=== PATIENT | female | born 1985 | race Caucasian/White ===

== ENCOUNTER 2022-06-08 12:52 | Outpatient (CLI) | payer SELFPAY ==
--- NOTE | ~2022-06-08 | US_ITS ---
EXAMINATION: US venous doppler LE RT DATE: 06/08/2022 13:57 INDICATION: Right lower limb pain. Varicose veins. TECHNIQUE: Grayscale ultrasound images without and with compression and Doppler ultrasound images of the right lower extremity veins were obtained. COMPARISON: None. FINDINGS: The visualized portions of right common femoral vein, profunda (deep) femoral vein, femoral vein, pop liteal vein, peroneal trunk, posterior tibial veins, peroneal veins, gastrocnemius vein and greater s aphenous vein outflow are patent. IMPRESSION: 1. No deep venous thrombosis in the right lower limb. Reviewed, dictated and finalized at location A.
== END 2022-06-08 12:53 | disposition home or self-care (01) ==
PROVIDERS: PCP Family Medicine; Visit Provider Family Medicine
DX: I83.811 Varicose veins of right lower extremity with pain (principal)
CPT/HCPCS: 93971

== ENCOUNTER 2022-06-16 09:28 | Emergency (ER) | payer SELFPAY ==
--- NOTE | ~2022-06-16 | XR_ITS ---
EXAMINATION: XR ankle LT min 3V DATE: 06/16/2022 10:48 INDICATION: Left ankle pain TECHNIQUE: Anteroposterior, lateral, mortise, and additional oblique view of the ankle were obtained. COMPARISON: None. FINDINGS: Bone alignment is normal. There is subtle heterotopic ossification projecting distal to the lateral malleolus. There is mild lateral soft tissue swelling near the lateral malleolus. An old hea led fracture of the distal fibula is noted. There is a plantar calcaneal enthesophyte. IMPRESSION: 1. Possible small avulsion injury of the lateral malleolus. Reviewed, dictated and finalized at location B.
[2022-06-16 09:31] VITALS: BP 113/71; PULSE 51; RESP 15; O2SAT 96
--- NOTE | 2022-06-16 09:58 | ECG_ITS ---
Measurements Intervals [place] Rate: 48 P: 66 UT: 186 QRS: 81 QRSD: 87 T: -8 QT: 499 QTc: 446 Interpretive Statements SINUS BRADYCARDIA INCOMPLETE RIGHT BUNDLE BRANCH BLOCK T WAVE ABNORMALITY IN ANTERIOR LEADS- CONSIDER ISCHEMIA ABNORMAL ECG NO PREVIOUS ECG AVAILABLE FOR COMPARISON Electronically Signed On 06-16-2022 11:18:29 CDT by Duy Villa D.O.
[2022-06-16] MEDS: SODIUM CHLORIDE 0.9% IV 1,000 ML 999 ML IV CONT (10:51)
[2022-06-16 10:54] LABS: Basophils Percent Auto 0.3 % (0.2-1.2); Eosinophils Percent Auto 0.4 % (0-4.4); Hematocrit 33.3 % (37.0-47.0); Hemoglobin 11.2 g/dL (12.0-15.0); Immature Granulocyte Absolute 0.04 K/mm3 (0.00-0.031); Immature Granulocyte Percent A 0.5 % (0-0.5); Lymphocytes Absolute Auto 0.72 K/mm3 (0.9-3.2); Lymphocytes Percent Auto 9.4 % (18.3-44.2); Mean Corpuscular HGB Conc 33.6 g/dl (32-36); Mean Corpuscular Hemoglobin 33.3 pg (26-34); Mean Corpuscular Volume 99.1 fl (80-100); Mean Platelet Volume 10.8 fl (7.4-10.4); Monocytes Absolute Auto 0.3 K/mm3 (0.1-0.6); Monocytes Percent Auto 4.3 % (2.6-8.5); Neutrophils Absolute Auto 6.5 K/mm3 (1.3-6.7); Neutrophils Percent Auto 85.1 % (45.5-73.1); Platelet Count Result 128 k/mm3 (150-375); Red Blood Count 3.36 M/mm3 (4.2-5.4); Red Cell Distribution Width 13.1 % (11.5-14.5); White Blood Count 7.7 K/mm3 (4.5-10.0)
--- NOTE | 2022-06-16 11:06 | ED.SYNCOPE ---
HPI - Syncope General Chief Complaint: Syncope Stated Complaint: ankle injury, syncope, 20wks Time Seen by Provider: 06/16/22 10:27 Source: patient, EMS and RN notes reviewed Mode of arrival: EMS Limitations: no limitations History of Present Illness HPI narrative: This is a 37 year old female [place] 20 weeks who presents for evaluation of syncopal episode. Patient states she has history of syncope with pain . She reports having at 8 episodes of vasovagal episodes in the past. She states today she was preparing for soccer practice when she twisted her left ankle. She reports pain and lateral swelling. She bent over to assess her ankle and she felt lightheaded. Her mother was present and able to lay patient down. They reports patient had brief episode of seizure like activity. She was unresponsive for less than 1 minute. She reports multiple similar episodes. She denies chest pain, sob, palpitations, abdominal pain or vaginal bleedig. She denies dizziness currently. She has had multiple evaluations for syncope. She reports her heart rate is always in 50s. Related Data Allergies Allergy/AdvReac Type Severity Reaction Status Date / Time No Known Allergies Allergy Verified 06/16/22 10:50 Review of Systems Review of Systems: All systems reviewed & are unremarkable except as noted in HPI and below Constitutional: Constitutional: Denies chills, Denies fatigue and Denies fever(s) ENT: Denies nasal congestion Cardiovascular: Cardiovascular: Denies chest pain, Denies rapid heart rate and Denies radiating jaw, neck or arm pain Respiratory: Respiratory: Denies chest congestion and Denies cough Gastrointestinal: Gastrointestinal: Denies abdominal pain, Denies nausea and Denies vomiting Genitourinary: Genitourinary: Denies dysuria and Denies pelvic pain Musculoskeletal: Musculoskeletal: Denies back pain PMFSH Past Medical History Medical History (Updated 06/16/22 @ 13:53 by Sandi Bright MD) Syncope Surgical History Surgical History (Updated 06/16/22 @ 13:48 by Sandi Bright MD) No pertinent past surgical history Social History Social History (Updated 06/16/22 @ 13:48 by Sandi Bright MD) Smoking status: Never smoker Exam Narrative: GENERAL: Well-appearing, well-nourished, and in no acute distress. HEAD: Normocephalic, atraumatic EYES: PERRLA and EOMI, conjunctiva clear without discharge NOSE: Nares clear, no rhinorrhea or epistaxis THROAT:Mucous membranes moist, Oropharynx normal without erythema, exudate, peritonsillar swelling or fluctuance NECK: Supple, without lymphadenopathy or mass RESPIRATORY: No respiratory distress, Airway patent, Respirations non-labored, Clear to auscultation without rales, rhonchi or wheeze HEART: Regular rate and rhythm. No murmur heard. Normal peripheral pulses. ABDOMEN: Soft, nontender, gravid, normal active bowel sounds. No masses. No rebound or guarding, No organomegaly. EXTREMITIES: No edema, normal strength with full range of motion. left lateral ankle swelling SKIN: Warm, dry, normal color without rash NEURO: Alert and oriented x3. CN 2-12 grossly intact. No focal deficits. PSYCH: Normal mood and affect. Course Reevaluation(s) Reevaluation #1: PAtient states she feels great, and she denies dizziness. She will get ankle brace or walking boot after discharge. FHT normal. Will give antibiotics for asymptomatic bacteruria Date: 06/16/22 Time: 13:49 Vital Signs Vital signs: Vital Signs Pulse Rate 51 L 06/16/22 09:31 Respiratory Rate 15 06/16/22 09:31 Blood Pressure 113/71 06/16/22 09:31 Pulse Oximetry 96 06/16/22 09:31 Pulse Rate 55 L 06/16/22 14:18 Respiratory Rate 16 06/16/22 14:18 Blood Pressure 120/74 06/16/22 14:18 Pulse Oximetry 100 06/16/22 14:18 MDM - Syncope Lab Data Attestation: I reviewed the patient's lab results. Result diagrams: 06/16/22 10:43 06/16
[2022-06-16 11:10] LABS: Alanine Aminotransferase 19 U/L (6-35); Albumin Level 3.2 g/dL (3.5-5.1); Alkaline Phosphatase 31 U/L (38-126); Anion Gap 8 mmol/L (8-16); Aspartate Amino Transferase 21 U/L (14-36); Bilirubin,Total 0.3 mg/dL (0.2-1.3); Blood Urea Nitrogen 11 mg/dL (7-17); Calcium 7.5 mg/dL (8.4-10.2); Carbon Dioxide 23 mmol/L (22-30); Chloride 104 mmol/L (98-107); Estimated CRCL calculation 118 ml/min; Estimated Glomerular Filt Rate > 60; Glucose 112 mg/dL (65-110); Magnesium 1.7 mg/dL (1.6-2.3); Potassium 3.6 mmol/L (3.4-5.0); Sodium 135 mmol/L (137-145)
[2022-06-16 11:11] LABS: Glucose Point of Care 107 mg/dl (65-105)
[2022-06-16 12:18] LABS: Appearance Urine Clear (Clear); Bilirubin Urine Negative (Negative); Blood Urine Negative (Negative); Color Urine Yellow (Yellow); Glucose Urine UA Negative (Negative); Ketones Urine Trace mg/dL (Negative); Leukocyte Esterase Ur 1+ LEU/UL (Negative); Nitrate Urine Negative (Negative); Protein Urine Negative (Negative); Specific Grav Ur 1.015 (1.001-1.035); Urobilinogen Urine 0.2 mg/dL (<2.0); pH Urine 6.5 (5.0-9.0)
[2022-06-16 12:24] LABS: Add Urine Microscopic? YES; Mucus Urine Rare /lpf; Squamous Epithelial Cell Urine Many /hpf (Few)
[2022-06-16 12:46] VITALS: BP 119/79; PULSE 59
[2022-06-16 12:47] VITALS: BP 115/68; BP 116/71; PULSE 57; PULSE 68
[2022-06-16 14:18] VITALS: BP 120/74; PULSE 55; RESP 16; O2SAT 100
== END 2022-06-16 14:18 | disposition home or self-care (01) ==
PROVIDERS: Emergency Provider General Practice; PCP Family Medicine
DX: O99.891 Other specified diseases and conditions complicating pregnancy (principal); R55 Syncope and collapse; O26.892 Other specified pregnancy related conditions, second trimester; R82.71 Bacteriuria; O9A.212 Injury, poisoning and certain other consequences of external causes complicating pregnancy, second trimester; S93.402A Sprain of unspecified ligament of left ankle, initial encounter; Z3A.20 20 weeks gestation of pregnancy; X50.9XXA Other and unspecified overexertion or strenuous movements or postures, initial encounter; R00.1 Bradycardia, unspecified; I45.10 Unspecified right bundle-branch block; R94.31 Abnormal electrocardiogram [ECG] [EKG]
CPT/HCPCS: 36415; 73610; 80053; 81001; 82948; 83735; 85025; 87086; 93005; 96360; 96361; 99284; J7030

== ENCOUNTER 2023-07-03 23:26 | Inpatient (IN) | payer SELFPAY ==
--- NOTE | ~2023-07-03 | XR_ITS ---
Supine and upright views of the abdomen Clinical history: Small bowel obstruction Findings: Mildly dilated small bowel loops are present, with oral contrast within them. NG tube in sa tisfactory position. No abnormal mass lesion or calcification is seen. Osseous structures are intact. Impression: Findings suggestive of small bowel obstruction. Reviewed, dictated and finalized at [facility]. Impression: Findings suggestive of small bowel obstruction.
--- NOTE | ~2023-07-03 | US_ITS ---
Pelvic ultrasound. Clinical History: Pelvic pain Technique: Realtime transabdominal scanning of the pelvis was performed. Color flow Doppler and Doppl er spectral analysis were performed. Findings: The uterus is anteverted. The endometrial stripe has a thickness of 2 mm. No focal mass is identified. The right ovary measures 3.1 x 1.4 x 2.0 cm. No significant right ovarian or adnexal mass is seen. The left ovary measures 2.9 x 2.0 x 2.6 cm. No significant left ovarian or adnexal mass is seen. Vascular flow present in both ovaries on Doppler spectral analysis. There is no evidence of free fluid in the cul de sac. Impression: No significant abnormality seen. No evidence for torsion. Reviewed, dictated and finalized at [facility]. Impression: No significant abnormality seen. No evidence for torsion.
--- NOTE | ~2023-07-03 | XR_ITS ---
EXAM: XR sm bowel follow through WS DATE: 07/04/2023 18:30 HISTORY: Small bowel obstruction . COMPARISON: CT abdomen and pelvis, same date. FINDINGS: Normal bowel gas pattern in the coping machine operator view. Excreted contrast in the urinary bladder. Cont rast fills dilated small bowel loops to the level of the mid jejunum by the 15 minute image. No furth er progression detected up to and including the 4 hour follow-up imaging. IMPRESSION: Multiple dilated proximal small bowel loops in the left upper and lower abdomen, without progression beyond the mid jejunum. Findings remain suspicious for small bowel obstruction. Consider follow-up AM radiograph. Reviewed, dictated and finalized at location K. IMPRESSION: Multiple dilated proximal small bowel loops in the left upper and l ower abdomen, without progression beyond the mid jejunum. Findings remain suspi cious for small bowel obstruction. Consider follow-up AM radiograph.
--- NOTE | ~2023-07-03 | CT_ITS ---
CT of the Abdomen and Pelvis: Indication: Abdominal pain Technique: 2.5 mm axial scans were obtained through the abdomen and pelvis following intravenous adm inistration of 100 cc of Omnipaque 350. Dose reduction technique was used on this scan by utilizing a utomated exposure control and iterative reconstruction technique. The dose-length product (DLP) was 4 68.67 mGy-cm. Findings: Scans through the lung bases are unremarkable. There is diffuse periportal edema. No other hepatic abnormality evident. The spleen, pancreas, gallbl adder, adrenals and kidneys are within normal limits. No evidence of aortic aneurysm. No retroperit singh lymphadenopathy. There are multiple mildly dilated small bowel loops, with engorgement of the vasa recta central mesen bhavana. Stomach and proximal small bowel are nondilated. Shotty central mesenteric lymph nodes are pres ent. Images through the pelvis were performed. Urinary bladder unremarkable. No adnexal mass evident. Smal l amount of pelvic ascites present. Impression: Multiple dilated small bowel loops with engorgement of the vasa recta and shotty central mesenteric l ymph nodes. Findings are consistent with partial/early small bowel obstruction with possible underlyi ng enteritis or inflammatory bowel disease. Correlate clinically. Extensive periportal edema, nonspecific. Small amount of pelvic ascites. Reviewed, dictated and finalized at location . Impression: Multiple dilated small bowel loops with engorgement of the vasa recta and shott y central mesenteric lymph nodes. Findings are consistent with partial/early sm all bowel obstruction with possible underlying enteritis or inflammatory bowel disease. Correlate clinically. Extensive periportal edema, nonspecific. Small amount of pelvic ascites.
--- NOTE | ~2023-07-03 | XR_ITS ---
EXAM: XR abdomen/kub 1V DATE: 07/04/2023 18:24 HISTORY: NG placement verification . COMPARISON: Concurrent small bowel follow-through. CT abdomen and pelvis 07/04/2023. FINDINGS: NG tube tip and side port project over the stomach. Multiple loops of dilated small bowel in the upper and lower left abdomen. IMPRESSION: NG tube, in good position. Reviewed, dictated and finalized at location K. IMPRESSION: NG tube, in good position.
[2023-07-03 23:27] VITALS: BP 120/68; PULSE 40; PULSE 42; RESP 20; TEMP 36.9
--- NOTE | 2023-07-03 23:46 | ECG_ITS ---
Measurements Intervals [place] Rate: 38 P: 74 [place]: 183 QRS: 89 QRSD: 93 T: 45 QT: 567 QTc: 455 Interpretive Statements SINUS BRADYCARDIA MODERATE T-WAVE ABNORMALITY, CONSIDER ANTERIOR ISCHEMIA [-0.1+ mV T WAVE IN V3/V4] COMPARED TO ECG 06/16/2022 11:02:30 NO SIGNIFICANT CHANGES Electronically Signed On 07-04-2023 15:42:24 CDT by Ashley Almodovar M.D.
--- NOTE | 2023-07-03 23:56 | PC.NURSE ---
SHAWNP, Priscila Cortez VORB 4mg zofran for pt at this time.
[2023-07-03 23:59] LABS: Basophils Percent Auto 0.4 % (0.2-1.2); Eosinophils Absolute Auto 0.1 K/mm3 (0-0.3); Eosinophils Percent Auto 1.5 % (0-4.4); Hematocrit 42.1 % (37.0-47.0); Hemoglobin 14.3 g/dL (12.0-15.0); Immature Granulocyte Absolute 0.02 K/mm3 (0.00-0.031); Immature Granulocyte Percent A 0.3 % (0-0.5); Lymphocytes Absolute Auto 1.88 K/mm3 (0.9-3.2); Lymphocytes Percent Auto 27.8 % (18.3-44.2); Mean Corpuscular Hemoglobin 32.1 pg (26-34); Mean Corpuscular Volume 94.6 fl (80-100); Mean Platelet Volume 11.6 fl (7.4-10.4); Monocytes Absolute Auto 0.3 K/mm3 (0.1-0.6); Monocytes Percent Auto 4.6 % (2.6-8.5); Neutrophils Absolute Auto 4.4 K/mm3 (1.3-6.7); Neutrophils Percent Auto 65.4 % (45.5-73.1); Platelet Count Result 143 k/mm3 (150-375); Red Blood Count 4.45 M/mm3 (4.2-5.4); Red Cell Distribution Width 11.7 % (11.5-14.5); White Blood Count 6.8 K/mm3 (4.5-10.0)
[2023-07-04] VITALS (16 sets, daily range): BP systolic 110–131; BP diastolic 64–83; PULSE 37–87; RESP 14–20; TEMP 36.3–37.1; O2SAT 95–100; BMI 21.5
--- NOTE | 2023-07-04 00:01 | ED.ABDPAIN ---
HPI - Abdominal Pain General Chief Complaint: Abdominal Pain <JASEN Guillory Last Filed: 07/04/23 04:31> Stated Complaint: ABD PAIN X 30 MINUTES <JASEN Guillory Last Filed: 07/04/23 04:31> Time Seen by Provider: 07/03/23 23:30 <JASEN Guillory Last Filed: 07/04/23 04:31> Source: patient <JASEN Guillory Last Filed: 07/04/23 04:31> Mode of arrival: EMS <JASEN Guillory Last Filed: 07/04/23 04:31> Limitations: no limitations <JASEN Guillory Last Filed: 07/04/23 04:31> History of Present Illness HPI narrative: This is a 38 year old female that presents to the ER for low abdominal pain. Ongoing over the last hour. Reports a sharp lower abdominal/pelvic pain. Reports it feels like she is in labor. Reports she just finished her menstrual cycle. Reports associated nausea and vomiting. Denies fever, dysuria or diarrhea. <JASEN Guillory Last Filed: 07/04/23 04:31> Related Data Home Medications: Home Medications Medication Instructions Recorded Confirmed No Home Medications 07/04/23 07/04/23 <JASEN Guillory Last Filed: 07/04/23 04:31> Allergies/Adverse Reactions: Allergies Allergy/AdvReac Type Severity Reaction Status Date / Time No Known Allergies Allergy Verified 07/04/23 00:24 <JASEN Guillory Last Filed: 07/04/23 04:31> Review of Systems Review of Systems: CONSTITUTIONAL: Denies fever GASTROINTESTINAL: Reports abdominal pain, nausea, vomiting. Denies diarrhea. GENITOURINARY: Denies dysuria <JASEN Guillory Last Filed: 07/04/23 04:31> All systems reviewed & are unremarkable except as noted in HPI and below <JASEN Guillory Last Filed: 07/04/23 04:31> [facility] Past Medical History Medical History: Medical History (Updated 07/04/23 @ 04:01 by Priscila Cortez PA-C) No active medical problems <Priscila Cortez PA-C - Last Filed: 07/04/23 04:31> Surgical History Surgical History: Surgical History (Updated 06/16/22 @ 13:48 by Sandi Bright MD) No pertinent past surgical history <Priscila Cortez PA-C - Last Filed: 07/04/23 04:31> Social History Social History: Social History (Updated 06/16/22 @ 13:48 by Sandi Bright MD) Smoking status: Never smoker Alcohol intake: current Drinks per week: 1 Substance use: current Lack of Transportation: No Lack of Food: Never True Current Housing: I Have Housing Concerned About Future Housing: No Difficulty Paying Gas/Electric Bills: No Difficulty Paying for Meds: No Currently Unemployed: No Education: Master's Degree or Higher Difficulty w/ Childcare or Family Care: No Spiritual care concerns: No <Priscila Cortez PA-C - Last Filed: 07/04/23 04:31> Exam Narrative: GENERAL: Well-appearing, well-nourished, and in no acute distress. HEAD: Normocephalic, atraumatic. EYES: EOMI. CHEST: Clear to auscultation. No respiratory distress. No wheezes rales or rhonchi HEART: Regular rate and rhythm. No murmur heard. Normal peripheral pulses. ABDOMEN: Soft, nondistended, normal active bowel sounds. Tender to palpation of the mid/lower abdomen without guarding EXTREMITIES: Normal range of motion. No edema. SKIN: Warm, dry, no rash. NEURO: No focal deficits. Alert and oriented x3. PSYCH: Normal mood and affect <Priscila Cortez PA-C - Last Filed: 07/04/23 04:31> Course Course Emergency Course: Patient's pain is much improved. Resting more comfortably <Priscila Cortez PA-C - Last Filed: 07/04/23 04:31> [employer]/PA Physician Supervision I agree with midlevel documentation; I performed the medical decision making component of this evaluation. I was very active in the decision-making process for this patient. Advised speaking to general surgery as well as discussing radiology reports with the radiologist. <Madelin Mcclendon MD - Last Filed: 07/04/23 07:20> Consul
[2023-07-04 00:12] LABS: Alanine Aminotransferase 32 U/L (6-35); Albumin Level 4.7 g/dL (3.5-5.1); Alkaline Phosphatase 57 U/L (38-126); Anion Gap 12 mmol/L (8-16); Aspartate Amino Transferase 34 U/L (14-36); Bilirubin,Total 0.6 mg/dL (0.2-1.3); Blood Urea Nitrogen 18 mg/dL (7-17); Carbon Dioxide 20 mmol/L (22-30); Chloride 103 mmol/L (98-107); Estimated CRCL calculation 88 ml/min; Estimated Glomerular Filt Rate > 60; Glucose 158 mg/dL (65-110); Lipase 164 U/L (23-300); Potassium 2.7 mmol/L (3.4-5.0); Sodium 135 mmol/L (137-145)
[2023-07-04] MEDS: ONDANSETRON INJ 4 MG/2 ML VIAL (00:12)
[2023-07-04] MEDS: SODIUM CHLORIDE 0.9% IV 1,000 ML 999 ML IV CONT ×2 (00:15→00:16)
[2023-07-04] MEDS: HYDROmorphone HCL INJ (*CRX) 1 MG/ML SYR 0.5 MG IV PUSH (00:15)
[2023-07-04 00:35] LABS: SPREG INTERNAL CONTROL Positive; Serum Qual hCG Negative
[2023-07-04] MEDS: POTASSIUM CHLORIDE INJ 40 MEQ in SODIUM CHLORIDE 0.9% IV 500 ML 130 MEQ IVPB (00:39)
[2023-07-04 00:46] LABS: Troponin I < 0.012 ng/mL (0.000-0.034)
[2023-07-04] MEDS: MORPHINE SULFATE (*CRX) 4 MG/ML INJ IV PUSH ×4 (01:44→20:24)
[2023-07-04] MEDS: PROCHLORPERAZINE EDISYLATE 10 MG/2 ML VIAL IV PUSH (01:44)
--- NOTE | 2023-07-04 01:50 | PC.NURSE ---
Pt to CT at this time. This RN placed pt on portable monitor prior to transport.
[2023-07-04 02:57] LABS: Reflex Lactic Acid Yes or No Add Lactic
[2023-07-04 03:30] LABS: Appearance Urine Clear (Clear); Bilirubin Urine Negative (Negative); Blood Urine Negative (Negative); Color Urine Yellow (Yellow); Glucose Urine UA Negative (Negative); Ketones Urine 2+ mg/dL (Negative); Leukocyte Esterase Ur Negative LEU/UL (Negative); Nitrate Urine Negative (Negative); Protein Urine Negative (Negative)
[2023-07-04 03:33] LABS: Add Urine Microscopic? NO; Specific Grav Ur 1.079 (1.001-1.035)
[2023-07-04 04:30] LABS: Lactic Acid 2.1 mmol/L (0.7-2.0)
--- NOTE | 2023-07-04 05:40 | ADMGEN ---
This patient, Fe Koenig, was admitted to Medical Room 252-01. Patient/family oriented to hospital policies and general routines including ID bracelet, bed and alarms, visiting hours, pain management, procedures, bathroom and other care routines, personal items, smoking policy, room service/diet, and visiting hours. Information on how to activate the Rapid Response Team has been discussed. Patient/Family are encouraged to report perceived risks to care and to ask questions if they do not understand what they are told or what they should do.
[2023-07-04] MEDS: ONDANSETRON INJ 4 MG/2 ML VIAL IV PUSH ×4 (05:49→20:24)
[2023-07-04 05:51] LABS: Magnesium 1.9 mg/dL (1.6-2.3); Phosphorus 3.3 mg/dL (2.5-4.5)
[2023-07-04] MEDS: POTASSIUM CHLORIDE INJ 40 MEQ in SODIUM CHLORIDE 0.9% IV 500 ML 125 MEQ IVPB (06:24)
[2023-07-04 08:49] LABS: Hematocrit 40.1 % (37.0-47.0); Hemoglobin 13.1 g/dL (12.0-15.0); Mean Corpuscular HGB Conc 32.7 g/dl (32-36); Mean Corpuscular Hemoglobin 31.9 pg (26-34); Mean Corpuscular Volume 97.6 fl (80-100); Mean Platelet Volume 11.7 fl (7.4-10.4); Platelet Count Result 147 k/mm3 (150-375); Red Blood Count 4.11 M/mm3 (4.2-5.4); White Blood Count 8.1 K/mm3 (4.5-10.0)
[2023-07-04 08:53] LABS: Anion Gap 5 mmol/L (8-16); Blood Urea Nitrogen 14 mg/dL (7-17); Calcium 7.7 mg/dL (8.4-10.2); Carbon Dioxide 21 mmol/L (22-30); Chloride 110 mmol/L (98-107); Estimated CRCL calculation 102 ml/min; Estimated Glomerular Filt Rate > 60; Glucose 151 mg/dL (65-110); Potassium 4.8 mmol/L (3.4-5.0); Sodium 136 mmol/L (137-145)
--- NOTE | 2023-07-04 09:01 | PC.NURSE ---
[id number] Consulted with patient to assess milk production needs. mother has a successful history 14 months approximately with her first two children and 8 months with her latest infant. She has not emptied her breast since 1900 last night, breast are not engorged at this time and Pt is concerned about not having anything to drink. IVF's are running. We reviewed methods of removing her milk since she is pumping and dumping at this time. She has a pump at home that will be brought into the hospital as the Medela pump kit flanges are too big for mothers nipples and could potentially cause her pain. Demonstration of hand expression was taught to the mother using the tool to protect the milk supply by removing the milk. We reviewed education of consistently removing milk to communicate to her body that she wants the milk supply. Mother states she breast feeds her about 5 times a day with complementary foods. We reviewed preventing and treatment of engorgement, plugged duct and mastitis. Resources provided with name and office phone number written on the inside of her admission folder and using the LC resource of the [facility] where she delivered. Mother voiced understanding of the information and will call if she has concerns or questions. Discussed the consult and plan with her Primary RN.
[2023-07-04] MEDS: SODIUM CHLORIDE 0.9% IV 1,000 ML 150 ML IV CONT ×2 (10:59→20:22)
[2023-07-04] MEDS: IBUPROFEN IV 400 MG in SODIUM CHLORIDE 0.9% IV 100 ML 208 MG IVPB ×2 (11:42→18:15)
--- NOTE | 2023-07-04 11:49 | PM.CNGS ---
Assessment and Plan Assessment and plan (1) Partial obstruction of small intestine: Code(s): K56.600 - Partial intestinal obstruction, unspecified as to cause Status: Acute Assessment and Plan: CT reviewed and suggests possible early/partial small bowel obstruction with possible underlying enteritis or inflammatory bowel disease. Patient has no previous abdominal surgeries that would suggest significant intraabdominal adhesions. She has no known history of IBD. She also does not have any recent history of diarrhea to suggest possible enteritis. Her abdominal pain has improved, but she continues to have nausea and vomiting without any bowel function today. We will order a water-soluble small bowel follow through to further evaluate the possible small bowel obstruction. Continue IV fluids, bowel rest, analgesics, and antiemetics. (2) Acute hypokalemia: Onset Date: ~07/03/23 Code(s): E87.6 - Hypokalemia Status: Acute Assessment and Plan: Potassium 2.7 and replaced with IV KCL. Repeat today showed potassium 4.8. Monitor labs. Plan I have discussed the patient's case and plan of care with Dr. Steele. Thank you for allowing us to see the patient in consultation and we will continue to follow along with you. History of Present Illness Consult details Consult date: 07/04/23 Reason for consult: other (Partial small-bowel obstruction) Requesting physician: Priscila Cortez PA-C Narrative: This is a 38-year-old female who presented to the ER for complaints of abdominal pain for 2 hours. She reports lying down in bed last night and noticing some generalized cramping abdominal pain. Over the next 10 minutes, she had more localized periumbilical pain that progressively became more severe. She then developed nausea and multiple episodes of vomiting. She denies ever having this pain in the past. Due to the abdominal pain, she presented to the ER for further evaluation. Labs were significant for potassium 2.7. White blood cell count and lactic acid normal. CT scan of the abdomen and pelvis showed multiple dilated small-bowel loops with engorgement of the vasa recta and shotty central mesenteric lymph nodes, consistent with partial/early small-bowel obstruction with possible underlying enteritis or inflammatory bowel disease, extensive periportal edema nonspecific, and small amount of pelvic ascites. Pelvic ultrasound showed no significant abnormality and no torsion. She was given a total of 80 mEq of potassium chloride IV. She was admitted to the hospitalist service. Our service was consulted for the possible partial small-bowel obstruction. She is now seen on the medical floor. She reports improvement in her periumbilical abdominal pain. This morning, she feels more bloated. She did have some more nausea and dry heaving this morning. She had one episode of vomiting today. No flatus today. She had a normal BM yesterday in the morning prior to onset of symptoms. No previous abdominal surgeries. Denies any previous bowel obstruction. She denies any recent diarrhea or contact with anyone with similar symptoms. No other complaints at this time. Denies personal or family history of IBD. She does report having some bloody mucous vaginal discharge this morning. She had finished her menses two days ago. She has been for 6 years with no recent new sexual partners. She also had a vaginal delivery of her third child about 8 months ago that was uneventful. Review of Systems Review of Systems: All systems reviewed & are unremarkable except as noted in HPI and below Constitutional: Constitutional: Reports no additional constitutional complaints, Denies chills, Denies fatigue, Denies fever(s), Denies poor appetite, Denies weight gain and Denies weight loss Comments: Reports history of syncopal episodes when in severe pain, hx of vasovagal response. Eyes: Eyes: Reports no additional eye complaints ENT: Reports
--- NOTE | 2023-07-04 11:54 | PM.IMHP ---
H&P: HPI History of Present Illness Date/Time: 07/04/23 11:54 Chief Complaint: Lower abdominal pain, nausea and vomiting Narrative: This is a 38 year old female who presented to the ER for complaints of abdominal pain that developed overnight. Patient stated that she was lying down in bed last night when she noticed some generalized cramping and abdominal pain that stayed persistent with worsening pain that regionalized around her periumbilical area. As the pain worsened, she developed multiple episodes of nausea and vomiting. Since she has never had pain like this before, she presented to the hospital for further evaluation. Workup in the ER included a CT scan of the abdomen pelvis which showed multiple dilated small-bowel loops with engorgement of the fast directed and shotty central mesenteric nodes consistent with partial/early small-bowel obstruction with possible underlying enteritis or inflammatory bowel disease, and a small amount of pelvic ascites. Pelvic ultrasound showed no significant abnormality and no torsion. EKG shown sinus bradycardia with a rate of 48 and an incomplete right bundle branch block which was confirmed by the patient as normal for her as she is currently physically active. Labs revealed WBC 8.1, sodium 136, chloride 110, BUN 14, creatinine 0.7, phos 3.3, magnesium 1.9, initial lactate 4. UA remarkable for 2+ ketones. She was given 2 L normal saline in 80 mEq of potassium chloride IV. Today patient feels nauseated with dry heaving. She still reports lower abdominal pain across her umbilicus and describes it as cramping. She was given morphine 4 mg for pain control and 4 mg of Zofran for nausea which which is controlling her symptoms. She states that she had a normal bowel movement yesterday prior to the onset of her symptoms. She denies any constipation or diarrhea. She also denies any flatus at this time. She denies any abdominal surgeries. She does denies any past medical history. She denies any family history of IBD or ulcers. She states that she finished her menses on 07/02 but had noted a vaginal discharge this morning with an odor with some spot bleeding. She has been for the past 6 years and remains monogamous. She recently delivered her third child 8 months ago which was uneventful and had a normal pap smear at that time. Review of Systems Constitutional: Constitutional: Reports no additional constitutional complaints Eyes: Eyes: Reports no additional eye complaints ENT: Reports system reviewed and no additional complaints, except as documented Cardiovascular: Comments: chronic bradycardia, baseline 50's. Has had episodes of passing out with pain, likely vasal vagal response. Respiratory: Respiratory: Reports no additional respiratory complaints Genitourinary: Genitourinary: Reports vaginal discharge Comments: Reports clear discharge with an odor Musculoskeletal: Musculoskeletal: Reports no additional musculoskeletal complaints Integumentary/Breasts: Skin/Breast: Reports system reviewed and no additional complaints, except as docu Neurologic: Reports system reviewed and no additional complaints, except as documented Psychiatric: Psychiatric: Reports no additional psychiatric complaints Endocrine: Endocrine: Reports no additional endocrine complaints Hematologic/Lymphatic: Hematologic/Lymphatic: Reports no additional hematologic/lymphatic complaints Allergic/Immunologic: Allergic/Immunologic: Reports no additional allergic/immunologic complaints [facility] Past Medical History Medical History No active medical problems Surgical History Surgical History No pertinent past surgical history Family History Family History (Updated 07/04/23 @ 11:59 by Tamanna Pulido APRN) Father Diabetes mellitus Type II Hypothyroid Mother Hypertension Grandparent
[2023-07-04 12:15] LABS: Anion Gap 6 mmol/L (8-16); Blood Urea Nitrogen 12 mg/dL (7-17); Calcium 7.9 mg/dL (8.4-10.2); Carbon Dioxide 23 mmol/L (22-30); Chloride 108 mmol/L (98-107); Estimated CRCL calculation 102 ml/min; Estimated Glomerular Filt Rate > 60; Glucose 113 mg/dL (65-110); Lactic Acid Reflex 1.2 mmol/L (0.7-2.0); Potassium 4.4 mmol/L (3.4-5.0); Sodium 137 mmol/L (137-145)
[2023-07-04] MEDS: PANTOPRAZOLE SODIUM IV 40 MG VIAL IV PUSH (20:24)
[2023-07-05] VITALS (17 sets, daily range): BP systolic 114–133; BP diastolic 68–82; PULSE 39–75; RESP 13–21; TEMP 36.3–37.2; O2SAT 96–100
[2023-07-05] MEDS: MORPHINE SULFATE (*CRX) 4 MG/ML INJ IV PUSH (01:23)
[2023-07-05] MEDS: IBUPROFEN IV 400 MG in SODIUM CHLORIDE 0.9% IV 100 ML 208 MG IVPB ×2 (05:01→11:32)
[2023-07-05] MEDS: SODIUM CHLORIDE 0.9% IV 1,000 ML 150 ML IV CONT ×2 (05:02→10:40)
[2023-07-05 05:40] LABS: Basophils Percent Auto 0.4 % (0.2-1.2); Eosinophils Percent Auto 0.1 % (0-4.4); Hematocrit 41.2 % (37.0-47.0); Hemoglobin 13.2 g/dL (12.0-15.0); Immature Granulocyte Absolute 0.01 K/mm3 (0.00-0.031); Immature Granulocyte Percent A 0.1 % (0-0.5); Lymphocytes Absolute Auto 1.38 K/mm3 (0.9-3.2); Lymphocytes Percent Auto 19.4 % (18.3-44.2); Mean Corpuscular Hemoglobin 31.9 pg (26-34); Mean Corpuscular Volume 99.5 fl (80-100); Mean Platelet Volume 11.7 fl (7.4-10.4); Monocytes Absolute Auto 0.5 K/mm3 (0.1-0.6); Neutrophils Absolute Auto 5.2 K/mm3 (1.3-6.7); Platelet Count Result 143 k/mm3 (150-375); Red Blood Count 4.14 M/mm3 (4.2-5.4); Red Cell Distribution Width 12.4 % (11.5-14.5); White Blood Count 7.1 K/mm3 (4.5-10.0)
[2023-07-05 05:58] LABS: Anion Gap 3 mmol/L (8-16); Blood Urea Nitrogen 12 mg/dL (7-17); Calcium 7.8 mg/dL (8.4-10.2); Carbon Dioxide 26 mmol/L (22-30); Chloride 109 mmol/L (98-107); Estimated CRCL calculation 90 ml/min; Estimated Glomerular Filt Rate > 60; Glucose 104 mg/dL (65-110); Potassium 3.5 mmol/L (3.4-5.0); Sodium 138 mmol/L (137-145)
--- NOTE | 2023-07-05 07:05 | PM.IMPN ---
Progress Note: A&P Assessment and Plan (1) Partial obstruction of small intestine: Code(s): K56.600 - Partial intestinal obstruction, unspecified as to cause Status: Acute Assessment and Plan: 07/04/2023 -CT of abdomen revealed multiple dilated small bowel loops with engorgement of the vasta recta consistent with partial/early small bowel obstruction with possible underlying enteritis or inflammatory bowel disease. Small amount of pelvic ascites was also noted on exam. -General surgery consulted, would appreciate their input and defer to them for further diagnostic testing/interventions -Continue NPO status and IVF at this time -Continue pain control efforts 07/05/2023 - patient had small-bowel follow-through yesterday which did not show significant passage of contrast and 2-1/2 hours in which an NGT was placed to low intermittent suction. - KUB today mildly dilated small bowel loops are present with oral contrast within them, NG tube is in satisfactory position, findings were suggestive of small-bowel obstruction. -high output via NGT. Per EMR patient had 900ml output overnight and on exam today I observed 750 in canister. - General surgery plans to take her to OR today for surgery for closed loop bowel obstruction. -Will continue with NPO status, NGT to LIS, and IVF. Will defer management to general surgery team. (2) Lactic acidosis: Onset Date: ~07/03/23 Code(s): E87.20 - Acidosis, unspecified Status: Acute Assessment and Plan: 07/04/2023 -Initial Lactate 4.0. Now down to 2.1 Likely due to dehydration, however can not rule out infectious process. -CT of abdomen shown multiple dilated small bowel loops with engorgement of the vasta recta consistent with partial/early small bowel obstruction with possible underlying enteritis or inflammatory bowel disease. Small amount of pelvic ascites was also noted on exam. - Will repeat Lactate at 1200 07/05/2023 - Lactate now down to 1.2. Lactic acidosis resolved at this time. (3) Acute hypokalemia: Onset Date: ~07/03/23 Code(s): E87.6 - Hypokalemia Status: Acute Assessment and Plan: 07/04/2023 -Initial K+ 2.7, now 4.8. 80 meq IV KCL given overnight. K+ improving -Will recheck BMP at 1200 07/05/2023 -Potassium 3.5 this morning, will give additional 40 meq IV KCL today. - Repeat labs in a.m. Time Spent With Patient Time with patient: Greater than 35 minutes Subjective Date/time seen: 07/05/23 07:05 Interval history: 07/04/2023-This is a 38 year old female who presented to the ER for complaints of abdominal pain that developed overnight. Patient stated that she was lying down in bed last night when she noticed some generalized cramping and abdominal pain that stayed persistent with worsening pain that regionalized around her periumbilical area. As the pain worsened, she developed multiple episodes of nausea and vomiting. Since she has never had pain like this before, she presented to the hospital for further evaluation.? Workup in the ER included a CT scan of the abdomen pelvis which showed multiple dilated small-bowel loops with engorgement of the fast directed and shotty central mesenteric nodes consistent with partial/early small-bowel obstruction with possible underlying enteritis or inflammatory bowel disease, and a small amount of pelvic ascites.? Pelvic ultrasound showed no significant abnormality and no torsion.? EKG shown sinus bradycardia with a rate of 48 and an incomplete right bundle branch block which was confirmed by the patient as normal for her as she is currently physically active.? Labs revealed WBC 8.1, sodium 136, chloride 110, BUN 14, creatinine 0.7, phos 3.3, magnesium 1.9, initial lactate 4.? UA remarkable for 2+ ketones. She was given 2 L normal saline in 80 mEq of potassium chloride IV.? Today patient feels nauseated with dry heaving.? She still reports lower abdominal pain across her umbilicus and descri
[2023-07-05] MEDS: PANTOPRAZOLE SODIUM IV 40 MG VIAL IV PUSH (09:07)
[2023-07-05] MEDS: SALINE 0.65% NAS SOLN 44 ML BTL 1 SPRAY NASAL (09:09)
--- NOTE | 2023-07-05 10:32 | PM.PNGS ---
Progress Note: A&P Assessment and Plan (1) Partial obstruction of small intestine: Code(s): K56.600 - Partial intestinal obstruction, unspecified as to cause Status: Acute Assessment and Plan: I had a thorough discussion with patient twice this morning about current condition and treatment options. She has not shown any significant sign of improvement the imaging and she is still having abdominal pain. I have recommended diagnostic laparoscopy, possible open, possible bowel resection. I discussed that since she is not in severe pain and not show any significant worsening signs this could be delayed another dear to, but that could lead to worsening obstruction and longer period without nutrition. Patient also did mention possible transfer to [place] and I did state that would make these arrangements if she wants to. I discussed that this can sometimes take 1-2 days minimum to get transferred which can delay her treatment would be happy to make a call if she wants. She feels comfortable staying here and like to proceed with surgery today. I discussed the risks, benefits, and alternatives. This includes major bowel injury or major bleeding but with the very minimal chance. I also discuss risks for conversion to open and risk for bowel resection which could also increased risks of postoperative infection. Patient voiced her understanding. Subjective Subjective Date/Time Seen: 07/05/23 10:32 Interval history: Patient passed small amount of flatus, but no BM. Still having some periumbilical pain at times. Did receive morphine overnight for pain. Exam GI: Inspection: distended GI Palp: Yes Soft to palpation, Yes Tenderness to palpation present (GI) (Infraumbilical), No Guarding due to palpation present (GI) and No Rebound tenderness present Percussion: Yes dullness to percussion Objective Data Vital Signs Vital Signs: Vital Signs - 24 hr 07/04/23 13:00 07/04/23 12:00 07/04/23 16:00 Temperature 37.1 C Pulse Rate 87 46 L 49 L Respiratory Rate 16 Blood Pressure 122/73 Pulse Oximetry 99 Oxygen Delivery 07/04/23 19:22 07/04/23 20:00 07/04/23 20:00 Temperature 36.3 C L Pulse Rate 65 65 48 L Respiratory Rate 18 18 Blood Pressure 130/64 Pulse Oximetry 95 95 Oxygen Delivery Room Air 07/05/23 00:00 07/05/23 04:00 07/05/23 06:00 Temperature 36.7 C Pulse Rate 42 L 39 L 42 L Respiratory Rate 18 Blood Pressure 114/72 Pulse Oximetry 96 Oxygen Delivery 07/05/23 09:10 07/05/23 09:10 Temperature Pulse Rate 48 L Respiratory Rate Blood Pressure Pulse Oximetry 96 Oxygen Delivery Room Air Intake/Output Intake/Output: Intake & Output 07/02/23 07/03/23 07/04/23 07/05/23 23:59 23:59 23:59 23:59 Intake Total 3728 1000 Output Total 900 Balance 2828 1000 Meds/Results Medications: Active Medications Generic Name Dose Route Start Last Admin Trade Name Freq PRN Reason Stop Dose Admin Enoxaparin Sodium 40 mg 07/05/23 09:00 07/05/23 09:29 Enoxaparin 40 Mg/0.4 Ml Syringe SUB-Q Not Given DAILY ALICIA Sodium Chloride 1,000 mls @ 150 mls/hr 07/04/23 04:25 07/05/23 05:02 Normal Saline Iv IV CONT 150 mls/hr .[id number] ALICIA Administration Ibuprofen 400 mg/ Sodium 104 mls @ 208 mls/hr 07/04/23 04:21 07/05/23 05:01 Chloride IVPB 208 mls/hr Q6H PRN Administration Pain Rated 4-6 Morphine Sulfate 4 mg 07/04/23 04:21 07/05/23 01:23 Morphine Sulfate (*Crx) 4 Mg/Ml Inj IV PUSH 4 mg Q4H PRN Administration Pain Rated 7-10 Ondansetron HCl 4 mg 07/04/23 04:21 07/04/23 20:24 Ondansetron Inj 4 Mg/2 Ml Vial IV PUSH 4 mg Q4H PRN Administration Nausea Pantoprazole Sodium 40 mg 07/04/23 21:00 07/05/23 09:07 Pantoprazole Sodium Iv 40 Mg Vial IV PUSH 40 mg Q12HR ALICIA Administration Sodium Chloride 1 spray 07/05/23 00:54 07/05/23 09:09 Saline 0.65% Hans Soln 44 Ml Btl NASAL 1 spray Q6H
--- NOTE | 2023-07-05 12:20 | PC.NURSE ---
To OR per Bed, IV LAC and Right wrist. Report given to Jah NGUYEN.
--- NOTE | 2023-07-05 12:37 | WPDANESEPPF ---
Anes - Initial Pre Proc Eval Procedure: Operation Date: 07/05/23 13:30 Proposed Procedures p Diagnostic Laparoscopy, Possible Open, Possible Bowel Resection - Heri Steele DO Date/Time: 07/05/23 12:37 Surgeon: Coby Erickson DO Pre Op Diagnosis: Partial Small Bowel Obstruction, Hypokalemia Patient Data Age: 38 Gender: F Height: 1.79 m Weight: 69.2 kg Last Vital Signs Temp 36.7 C 07/05/23 06:00 Pulse 48 L 07/05/23 09:10 Resp 18 07/05/23 06:00 BP 114/72 07/05/23 06:00 Pulse Ox 96 07/05/23 09:10 O2 Del Method Room Air 07/05/23 09:10 O2 Flow Rate 1 07/04/23 06:42 Allergies Allergy/AdvReac Type Severity Reaction Status Date / Time No Known Allergies Allergy Verified 07/04/23 00:24 Home Medications Medication Instructions Recorded Confirmed Type No Home Medications 07/04/23 07/04/23 History Laboratory Tests 07/05/23 05:09 WBC 7.1 K/mm3 (4.5-10.0) RBC 4.14 L M/mm3 (4.2-5.4) Hgb 13.2 g/dL (12.0-15.0) Hct 41.2 % (37.0-47.0) MCV 99.5 fl (80-100) MCH 31.9 pg (26-34) MCHC 32.0 g/dl (32-36) RDW 12.4 % (11.5-14.5) Plt Count 143 L k/mm3 (150-375) MPV 11.7 H fl (7.4-10.4) Immature Gran % (Auto) 0.1 % (0-0.5) Neut % (Auto) 73.0 % (45.5-73.1) Lymph % (Auto) 19.4 % (18.3-44.2) [place] % (Auto) 7.0 % (2.6-8.5) Eos % (Auto) 0.1 % (0-4.4) Baso % (Auto) 0.4 % (0.2-1.2) Lymph # (Auto) 1.38 K/mm3 (0.9-3.2) [place] # (Auto) 0.5 K/mm3 (0.1-0.6) Eos # (Auto) 0.0 K/mm3 (0-0.3) Baso # (Auto) 0.0 K/mm3 (0.0-0.1) Abs Immat Gran (auto) 0.01 K/mm3 (0.00-0.031) Absolute Neuts (auto) 5.2 K/mm3 (1.3-6.7) Absolute Nucleated RBC 0.0 K/mm3 (0.0-0.012) Nucleated RBC % 0.0 % (0.0-0.2) Sodium 138 mmol/L (137-145) Potassium 3.5 mmol/L (3.4-5.0) Chloride 109 H mmol/L (98-107) Carbon Dioxide 26 mmol/L (22-30) Anion Gap 3 L mmol/L (8-16) BUN 12 mg/dL (7-17) Creatinine 0.80 mg/dL (0.7-1.0) Estim Creat Clear Calc 90 ml/min Estimated GFR > 60 (59 - ) Glucose 104 mg/dL (65-110) Calcium 7.8 L mg/dL (8.4-10.2) Patient hx anesthesia problems: none Family hx anesthesia problems: none Results Review: All pre-operative results and documents have been reviewed as part of the pre-operative evaluation. [facility] Surgical History Surgical History No pertinent past surgical history Family History Family History Father Diabetes mellitus Type II Hypothyroid Mother Hypertension Grandparent Hypertension Grandparent Hypertension Other Diabetes mellitus Type II Social History Social History Smoking status: Never smoker Alcohol intake: current Drinks per week: 1 Substance use: current Lack of Transportation: No Lack of Food: Never True Current Housing: I Have Housing Concerned About Future Housing: No Difficulty Paying Gas/Electric Bills: No Difficulty Paying for Meds: No Currently Unemployed: No Education: Master's Degree or Higher Difficulty w/ Childcare or Family Care: No Spiritual care concerns: No Anes - Eval Final PreProcedure Day of Procedure 07/05/23 12:37 Patient weight: normal Heart: regular rate and rhythm Airway: Mallampati scale class II Neurological: alert and oriented Last oral intake: >/= 8 hours ASA classification: II Emergent: no Anesthetic plan: proceed Anesthesia type and monitoring: general ETT and standard monitoring Results Review: All pre-operative results and documents have been reviewed as part of the pre-operative evaluation. Informed Consent: The patient's anesthetic plan and its attendant risks and benefits were discussed with the patient/family/P
--- NOTE | 2023-07-05 12:46 | WPDHPUPDATE1 ---
History and Physical Update Update Date/Time: 07/05/23 12:46 History and Physical has been reviewed, including an updated exam of the patient. There are NO changes in the patient's condition. Risks, benefits, and alternatives have been discussed and questions answered. Patient agrees to proceed with procedure.
--- NOTE | 2023-07-05 13:03 | PC.NURSE ---
On 07/05/23, the student, [Linden Hernandez], provided care and completed [facility] documentation on this patient. I have reviewed the student's documentation and agree with the findings.
[2023-07-05] MEDS: LACTATED RINGERS 1,000 ML 30 ML IV CONT ×2 (13:20→14:33)
[2023-07-05] MEDS: ceFAZolin 2 GM/D5W 50 ML 2 GM/50 ML BAG IVPB (13:37)
[2023-07-05] MEDS: BUPIVACAINE/EPINEPHRINE 0.5% 50 ML VIAL 20 ML INFILTRATE (13:55)
[2023-07-05] MEDS: INDOCYANINE GREEN 25 MG VIAL WITH DILUENT 3.75 MG IV PUSH (14:10)
--- NOTE | 2023-07-05 14:33 | W.PM.PROC2 ---
Procedure Note - Detailed Date of Procedure 07/05/23 Pre-op Diagnosis Partial Small Bowel Obstruction Post-op Diagnosis Same (Adhesive band causing closed loop obstruction) Procedure Performed Laparoscopic adhesiolysis Surgeon Heri Steele, DO Anesthesia General and Local (0.5% bupivicaine with epinephrine) Indications This is a 38-year-old woman who presented with acute onset of abdominal pain with nausea and vomiting. She had a CT in the emergency department which showed evidence of a partial bowel obstruction. There was also some concern on the CT after reviewing it with Radiology which might show presence of a closed-loop bowel obstruction. Gastrografin small-bowel follow-through was obtained and showed a complete bowel obstruction. Discussions were made with the patient about treatment options and decision was made to proceed with diagnostic laparoscopy, possible open, possible bowel resection. Findings Diagnostic laparoscopy was performed. Upon entering the abdomen laparoscopically, there did appear to be some erythematous bowel and clear ascites. About 600 mL of ascites was aspirated using the suction tax collector. The bowel was carefully inspected and run from the terminal ileum to the ligament of Treitz. There appeared to be an omental adhesive band going over the loop of small bowel and adhering to the mesentery which was causing a closed loop bowel obstruction. The adhesive band was carefully taken down using hook electrocautery and this appeared to relieve the obstruction. I then used indocyanine green to assess the perfusion to the bowel and all the small bowel appeared healthy and viable. No specimens were obtained for pathology. Description of Procedure Procedure as well as risks, benefits, and alternatives were discussed with the patient. Written consent was obtained and placed in chart prior to procedure. Patient was brought back to surgical suite she was placed supine on operating table. Time-out was done to confirm patient and procedure. She was then intubated by the anesthesia department. Her abdomen was prepped and draped in sterile fashion using chlorhexidine prep. A 5 mm incision was made in the right subcostal region and a 5 mm Optiview trocar was advanced through the abdominal layers under direct visualization. Once inside the abdominal cavity, carbon dioxide insufflation was used to create a pneumoperitoneum. The camera was inserted in the abdominal cavity was carefully inspected. The patient was placed in slight Trendelenburg position. A 5 mm incision was made in the right lower quadrant a 5 mm trocar was inserted under direct visualization. Another 5 mm incision was made in the right lateral abdomen a 5 mm trocar was inserted under direct visualization. The bowel was carefully inspected and an area of erythematous bowel was identified. This was carefully traced distally to the transition point and an adhesive band involving the omentum was identified. The adhesive band was carefully taken down using hook electrocautery. This freed up the remainder of the small bowel and I was able to run the small bowel distally to the terminal ileum and proximally to the ligament of Treitz. The remainder of the bowel appeared healthy and viable. The erythematous region of bowel did not appear to be ischemic. I chose to assess for perfusion to the section of the bowel using indocyanine green. 3 mL of indocyanine green was infused intravenously by Anesthesia and using near fluorescent infrared imaging I was able to assess adequate perfusion to the section bowel and the remainder of the bowel. No other abnormalities were noted. Patient was then flattened out in bed 1 final inspection was made around the abdominal cavity. All of the ascites was aspirated using suction tax collector. The ports were then removed under direct visualization, the camera was removed, and the pneumoperitoneum was released. The skin of the incisions was approx
[2023-07-05] MEDS: POTASSIUM CHLORIDE INJ 40 MEQ in SODIUM CHLORIDE 0.9% IV 500 ML 130 MEQ IVPB (14:35)
--- NOTE | 2023-07-05 17:22 | PC.NURSE ---
Returned from OR per BED. Report received from Aliya NGUYEN.
[2023-07-05] MEDS: IBUPROFEN 600 MG TABLET PO (17:37)
[2023-07-05] MEDS: LACTATED RINGERS 1,000 ML 100 ML IV CONT (22:30)
[2023-07-06] VITALS: PULSE 41
[2023-07-06] MEDS: IBUPROFEN 600 MG TABLET PO ×2 (00:57→07:38)
[2023-07-06 01:30] VITALS: BP 114/60; PULSE 58; RESP 20; TEMP 36.3; O2SAT 99
[2023-07-06 04:00] VITALS: PULSE 43
[2023-07-06 05:30] VITALS: BP 114/66; PULSE 45; RESP 21; TEMP 36.7; O2SAT 100
[2023-07-06 06:08] LABS: Hematocrit 35.8 % (37.0-47.0); Hemoglobin 11.7 g/dL (12.0-15.0); Mean Corpuscular HGB Conc 32.7 g/dl (32-36); Mean Corpuscular Hemoglobin 32.3 pg (26-34); Mean Corpuscular Volume 98.9 fl (80-100); Platelet Count Result 109 k/mm3 (150-375); Red Blood Count 3.62 M/mm3 (4.2-5.4); White Blood Count 6.3 K/mm3 (4.5-10.0)
[2023-07-06 06:15] LABS: Alanine Aminotransferase 40 U/L (6-35); Alkaline Phosphatase 38 U/L (38-126); Anion Gap 5 mmol/L (8-16); Aspartate Amino Transferase 28 U/L (14-36); Bilirubin,Total 0.8 mg/dL (0.2-1.3); Blood Urea Nitrogen 9 mg/dL (7-17); Calcium 7.8 mg/dL (8.4-10.2); Carbon Dioxide 25 mmol/L (22-30); Chloride 108 mmol/L (98-107); Estimated CRCL calculation 102 ml/min; Estimated Glomerular Filt Rate > 60; Glucose 90 mg/dL (65-110); Phosphorus 3.1 mg/dL (2.5-4.5); Potassium 3.6 mmol/L (3.4-5.0); Sodium 138 mmol/L (137-145)
--- NOTE | 2023-07-06 07:19 | WPDANESPN ---
Anes - Prog Note Post-Op Date/Time: 07/06/23 07:19 Cardiovascular status: normal Respiratory status: normal Airway patency: baseline Mental status: baseline Post-Op hydration status: normal Vital Signs: Last Vital Signs Temp 97.4 F L 07/06/23 01:30 Pulse 43 L 07/06/23 04:00 Resp 20 07/06/23 01:30 BP 114/60 07/06/23 01:30 Pulse Ox 99 07/06/23 01:30 O2 Del Method Room Air 07/05/23 21:58 O2 Flow Rate 8 07/05/23 14:45 Pain Score (VAS): 0/10 I/O: Intake & Output 07/05/23 07/05/23 07/06/23 15:59 23:59 07:59 Intake Total 2154 550 Output Total 900 Balance 2154 -350 Laboratory Tests 07/06/23 05:25 07/06/23 05:25 07/06/23 05:25 WBC 6.3 RBC 3.62 L Hgb 11.7 L Hct 35.8 L MCV 98.9 MCH 32.3 MCHC 32.7 RDW 12.0 Plt Count 109 L MPV 12.0 H Sodium 138 Potassium 3.6 Chloride 108 H Carbon Dioxide 25 Anion Gap 5 L BUN 9 Creatinine 0.70 Estim Creat Clear Calc 102 Estimated GFR > 60 Glucose 90 Calcium 7.8 L Phosphorus 3.1 Magnesium 2.0 Total Bilirubin 0.8 AST 28 ALT 40 H Alkaline Phosphatase 38 Total Protein 5.0 L Albumin 3.0 L Post-procedural complaints: none Patient Feedback: Patient satisfied with anesthetic care.
--- NOTE | 2023-07-06 07:28 | PM.IMPN ---
Progress Note: A&P Assessment and Plan (1) Partial obstruction of small intestine: Code(s): K56.600 - Partial intestinal obstruction, unspecified as to cause Status: Acute Assessment and Plan: 07/04/2023 -CT of abdomen revealed multiple dilated small bowel loops with engorgement of the vasta recta consistent with partial/early small bowel obstruction with possible underlying enteritis or inflammatory bowel disease. Small amount of pelvic ascites was also noted on exam. -General surgery consulted, would appreciate their input and defer to them for further diagnostic testing/interventions -Continue NPO status and IVF at this time -Continue pain control efforts 07/05/2023 - patient had small-bowel follow-through yesterday which did not show significant passage of contrast and 2-1/2 hours in which an NGT was placed to low intermittent suction. - KUB today mildly dilated small bowel loops are present with oral contrast within them, NG tube is in satisfactory position, findings were suggestive of small-bowel obstruction. -high output via NGT. Per EMR patient had 900ml output overnight and on exam today I observed 750 in canister. - General surgery plans to take her to OR today for surgery for closed loop bowel obstruction. -Will continue with NPO status, NGT to LIS, and IVF. Will defer management to general surgery team. 07/06/2023 -General surgery performed a diagnostic laparoscopy with lysis of adhesions yesterday. - encourage ambulation - continue NPO status, NG tube to lower intermittent suction, and IV fluids. Will defer management to General surgery team. (2) Lactic acidosis: Onset Date: ~07/03/23 Code(s): E87.20 - Acidosis, unspecified Status: Acute Assessment and Plan: 07/04/2023 -Initial Lactate 4.0. Now down to 2.1 Likely due to dehydration, however can not rule out infectious process. -CT of abdomen shown multiple dilated small bowel loops with engorgement of the vasta recta consistent with partial/early small bowel obstruction with possible underlying enteritis or inflammatory bowel disease. Small amount of pelvic ascites was also noted on exam. - Will repeat Lactate at 1200 07/05/2023 - Lactate now down to 1.2. Lactic acidosis resolved at this time. - Lactic acidosis resolved. (3) Acute hypokalemia: Onset Date: ~07/03/23 Code(s): E87.6 - Hypokalemia Status: Acute Assessment and Plan: 07/04/2023 -Initial K+ 2.7, now 4.8. 80 meq IV KCL given overnight. K+ improving -Will recheck BMP at 1200 07/05/2023 -Potassium 3.5 this morning, will give additional 40 meq IV KCL today. - Repeat labs in a.m. 07/06/2023 - Potassium 3.6 this morning, 40 meq IV KCL ordered. -Magnesium level 2.0, Subjective Date/time seen: 07/06/23 07:28 Interval history: 07/04/2023 This is a 38 year old female who presented to the ER for complaints of abdominal pain that developed overnight. Patient stated that she was lying down in bed last night when she noticed some generalized cramping and abdominal pain that stayed persistent with worsening pain that regionalized around her periumbilical area. As the pain worsened, she developed multiple episodes of nausea and vomiting. Since she has never had pain like this before, she presented to the hospital for further evaluation.? Workup in the ER included a CT scan of the abdomen pelvis which showed multiple dilated small-bowel loops with engorgement of the fast directed and shotty central mesenteric nodes consistent with partial/early small-bowel obstruction with possible underlying enteritis or inflammatory bowel disease, and a small amount of pelvic ascites.? Pelvic ultrasound showed no significant abnormality and no torsion.? EKG shown sinus bradycardia with a rate of 48 and an incomplete right bundle branch block which was confirmed by the patient as normal for her as she is currently physically active.? Labs revealed WBC 8.
[2023-07-06 08:00] VITALS: PULSE 55
[2023-07-06] MEDS: POTASSIUM CHLORIDE INJ 10 MEQ in DEXTROSE 5%/0.45% SOD CHL 1,000 ML 100 MEQ IV CONT (09:48)
[2023-07-06 10:02] VITALS: BP 123/67; PULSE 46; RESP 18; TEMP 36.3; O2SAT 100
--- NOTE | 2023-07-06 13:34 | PM.PNGS ---
Progress Note: A&P Assessment and Plan (1) Partial obstruction of small intestine: Code(s): K56.600 - Partial intestinal obstruction, unspecified as to cause Status: Acute Assessment and Plan: Doing well on POD#1. Bowels moving and tolerating diet. Ambulating without problems. OK to discharge home today. Follow up in office in 2 weeks. Subjective Subjective Date/Time Seen: 07/06/23 13:34 Interval history: Patient doing well. Bowels moving. Pain minimal. Tolerating regular diet. Exam GI: Inspection: normal to inspection and incision (Intact with glue) GI Palp: Yes Soft to palpation and Yes Tenderness to palpation present (GI) (incisional) Auscultation: normal bowel sounds Objective Data Vital Signs Vital Signs: Vital Signs - 24 hr 07/05/23 14:33 07/05/23 14:45 07/05/23 15:00 Temperature 36.6 C Pulse Rate 75 59 L 48 L Respiratory Rate 14 16 13 Blood Pressure 127/82 123/73 121/75 Pulse Oximetry 100 100 100 Oxygen Delivery Simple Face Mask Simple Face Mask Room Air Oxygen Flow Rate 8 8 07/05/23 15:15 07/05/23 15:30 07/05/23 15:50 Temperature 36.3 C L Pulse Rate 59 L 56 L 54 L Respiratory Rate 14 17 16 Blood Pressure 118/70 116/69 118/69 Pulse Oximetry 100 100 99 Oxygen Delivery Room Air Room Air Oxygen Flow Rate 07/05/23 16:20 07/05/23 16:00 07/05/23 17:20 Temperature 36.6 C 36.5 C Pulse Rate 61 49 L 45 L Respiratory Rate 17 16 Blood Pressure 124/68 120/73 Pulse Oximetry 100 100 Oxygen Delivery Oxygen Flow Rate 07/05/23 21:30 07/05/23 20:00 07/06/23 00:00 Temperature 36.4 C L Pulse Rate 52 L 45 L 41 L Respiratory Rate 21 H Blood Pressure 133/71 Pulse Oximetry 100 Oxygen Delivery Oxygen Flow Rate 07/05/23 21:58 07/06/23 04:00 07/06/23 01:30 Temperature 36.3 C L Pulse Rate 43 L 58 L Respiratory Rate 20 Blood Pressure 114/60 Pulse Oximetry 99 Oxygen Delivery Room Air Oxygen Flow Rate 07/06/23 05:30 07/06/23 10:02 07/06/23 08:00 Temperature 36.7 C 36.3 C L Pulse Rate 45 L 46 L 55 L Respiratory Rate 21 H 18 Blood Pressure 114/66 123/67 Pulse Oximetry 100 100 Oxygen Delivery Oxygen Flow Rate 07/06/23 09:45 Temperature Pulse Rate Respiratory Rate Blood Pressure Pulse Oximetry Oxygen Delivery Room Air Oxygen Flow Rate Intake/Output Intake/Output: Intake & Output 07/03/23 07/04/23 07/05/23 07/06/23 23:59 23:59 23:59 23:59 Intake Total 3728 3808 620 Output Total 900 900 Balance 2828 2908 620 Meds/Results Medications: Active Medications Generic Name Dose Route Start Last Admin Trade Name Freq PRN Reason Stop Dose Admin Enoxaparin Sodium 40 mg 07/05/23 09:00 07/06/23 10:01 Enoxaparin 40 Mg/0.4 Ml Syringe SUB-Q Not Given DAILY ALICIA Potassium Chloride 10 meq/ 1,000 mls @ 100 mls/hr 07/06/23 08:30 07/06/23 09:48 Dextrose/Sodium Chloride IV CONT 100 mls/hr .Q10H ALICIA Administration Ibuprofen 600 mg 07/05/23 15:45 07/06/23 07:38 Ibuprofen 600 Mg Tablet PO 600 mg Q6H PRN Administration Pain Rated 1-3 Morphine Sulfate 2 mg 07/05/23 15:45 Morphine Sulfate (*Crx) 2 Mg/Ml Inj IV PUSH Q2H PRN Pain Rated 4-6 Morphine Sulfate 4 mg 07/05/23 15:45 Morphine Sulfate (*Crx) 4 Mg/Ml Inj IV PUSH Q2H PRN Pain Rated 7-10 Ondansetron HCl 4 mg 07/04/23 04:21 07/04/23 20:24 Ondansetron Inj 4 Mg/2 Ml Vial IV PUSH 4 mg Q4H PRN Administration Nausea Oxycodone HCl 2.5 mg 07/05/23 15:45 Oxycodone Hcl (*Crx) 2.5 Mg Tab Ir PO Q4H PRN Pain Rated 4-6 Oxycodone HCl 5 mg 07/05/23 15:45 Oxycodone Hcl (*Crx) 5 Mg Tab Ir PO Q4H PRN Pain Rated 7-10 Sodium Chloride 1 spray 07/05/23 00:54 07/05/23 09:09 Saline 0.65% Hans Soln 44 Ml Btl NASAL 1 spray Q6HR PRN Administration Congestion Radiology Results: ITS Impressions Abdomen/Pelvis CT 07/04/23 05:52
--- NOTE | 2023-07-06 15:52 | PM.DS ---
DS: Admitting Diagnosis Discharge Date 07/06/2023 Admitting Diagnosis lower abdominal pain, nausea DS: Discharge Diagnosis Discharge Diagnosis (1) Partial obstruction of small intestine: Code(s): K56.600 - Partial intestinal obstruction, unspecified as to cause Status: Acute (2) Lactic acidosis: Onset Date: ~07/03/23 Code(s): E87.20 - Acidosis, unspecified Status: Acute (3) Acute hypokalemia: Onset Date: ~07/03/23 Code(s): E87.6 - Hypokalemia Status: Acute Plan DS: Summary Hospital Course Reason for hospitalization: small-bowel obstruction, closed loop status post laparotomy with lysis of adhesions Hospital Course: Patient is a 38-year-old female who presented to the ED with complaints of abdominal pain that became more severe through the night. As the pain worsened she developed multiple episodes of nausea and vomiting. she has never had pain like this before so she presented to the hospital for further evaluation. workup in the ER included a CT scan of the abdomen pelvis which showed partial to early small-bowel obstruction along with some pelvic ascites. Pelvic ultrasound was also ordered which ruled out any significant abnormality or torsion. Labs initially revealed a lactic acidosis with initial lactate at 4, WBC was 8.1, Mag 1.9, potassium 2.7 initially. Lactic acidosis corrected, Lactate now down to 1.2. Patient was given electrolyte replacement. General surgery was also consulted and did a small-bowel follow-through which revealed a closed loop bowel obstruction. Patient also had NG tube placed to LIS with high output per EMR. Patient then went to surgery on 07/05/23 with General surgery and underwent a laparotomy with lysis of adhesions. Bowel obstruction was immediately relieved. Today patient feels much better. NG tube was DC'd in the OR. patient had a bowel movement and is passing gas. She is tolerating food and drink at this time. Lap sites C/D/I, open to air. General surgery is okay with patient being discharged today and will follow up 2 weeks. Status at Discharge Cognitive/behavioral status at discharge: patient is alert and oriented x4, interactive, and pleasant Time Spent with Patient Time attestation: Total time spent providing and/or coordinating discharge services: Time spent: Greater than 30 minutes Exam Narrative: General: A&Ox4, no acute di stress HENMT:?? moist mucous membr anes Eyes:?? sclerae normal,? Pupils: Equal, rou nd and reactive pu pils present? EOM: EOMs intact bilat erally Neck:?? supple and no JVD, thyroid normal, t rachea midline Resp:?? normal respiratory effort, Lungs geovanny ar to auscultation bilaterally, no a dventitious lung s ounds. Cardio:?? bradycardic rangi ng in the 40-50's which is patient's baseline as she h as an athletic hea rt with resting he art rate in the 50 's? Rhythm: regula r rhythm, no edema , 2+ pulses all ex termities GI:?? Tenderness to palp ation present arou nd lap sites, abdo men slightly diste nded, soft, bowel sounds hypoactive. She is passing fl atus and had a BM post surgical inte rvention. ? :?? bladder normal to palpation S
== END 2023-07-06 15:45 | disposition home or self-care (01) | DRG 224 ==
LOC: ANHED 07-04 05:04 → ANH2MED 07-04 05:06
PROVIDERS: Nurse Practitioner Family; Surgery; Admitting Provider Internal Medicine; Emergency Provider Physician Assistant; PCP Family Medicine; Visit Provider Nurse Practitioner Acute Care
PROC: 0DNU4ZZ Release Omentum, Percutaneous Endoscopic Approach (ICD-10-PCS; CPT 49320; principal; 2023-07-05 13:30)
DX: K56.51 Intestinal adhesions [bands], with partial obstruction (principal); E87.20 Acidosis, unspecified; E86.0 Dehydration; E87.6 Hypokalemia; R00.1 Bradycardia, unspecified
CPT/HCPCS: 36415; 74018; 74177; 74250; 76856; 80048; 80053; 81003; 83605; 83690; 83735; 84100; 84484; 84703; 85025; 85027; 93005; 96361; 96365; 96366; 96367; 96374; 96375; 96376; 99285; A9270; C9113; G0378; J0690; J0780; J1100; J1170; J1650; J1741; J2250; J2270; J2405; J2704; J3010; J3480; J7030; J7040; J7120; Q9967